=== PATIENT | male | born 2000 | race Caucasian/White ===

== ENCOUNTER 2021-04-26 16:33 | Emergency (ER) | payer OTHER ==
[2021-04-26 16:54] VITALS: BP 134/92; PULSE 76; TEMP 98; BMI 22.6
[2021-04-26] MEDS ORDERED: IBUPROFEN 400 MG TABLET (FP) PO ONE ×2 (18:08→18:25)
== END 2021-04-26 21:27 | disposition home or self-care (01) ==
LOC: JERFT 16:33
DX: S09.92XA Unspecified injury of nose, initial encounter (principal); S02.2XXA Fracture of nasal bones, initial encounter for closed fracture
CPT/HCPCS: 70486-TC; 99284-25